=== PATIENT | male | born 1990 | race Caucasian/White ===

== ENCOUNTER 2021-02-23 09:50 | Emergency (ER) | payer BC ==
[2021-02-23] MEDS ORDERED: Sodium Chloride 0.9% 10 ML Syringe FLUSH PRN (10:24)
--- NOTE | 2021-02-23 10:58 | EDM.PDOC ---
ED HPI GENERAL MEDICAL PROBLEM - General Chief Complaint: Chest Pain Stated Complaint: SHARP CHEST PAIN EPISODES Time Seen by Provider: 02/23/21 10:33 Source of Information: Reports: Patient, RN Notes Reviewed - History of Present Illness INITIAL COMMENTS - FREE TEXT/NARRATIVE: 30 yr old male with several episodes of chest discomfort over the past few days. 3 days ago was the worst, felt palpitations, felt like heart "was racing". chest felt tight, no radiation of discomfort. 2 less severe episodes of discomfort since that time. Has not been recently ill. No discomfort at time of exam. Family hx is not bad for serious heart problems. Social & Family History - Tobacco Use Tobacco Use Status *Q: Never Tobacco User ED ROS GENERAL - Review of Systems Review Of Systems: See Below Constitutional: Denies: Fever, Chills, Diaphoresis HEENT: Reports: No Symptoms Respiratory: Denies: Shortness of Breath, Cough Cardiovascular: Reports: Chest Pain, Lightheadedness, Palpitations GI/Abdominal: Denies: Abdominal Pain, Nausea, Vomiting Musculoskeletal: Denies: Neck Pain, Shoulder Pain, Arm Pain, Back Pain Neurological: Denies: Numbness, Tingling, Weakness ED EXAM, GENERAL - Physical Exam Exam: See Below General Appearance: Alert, No Apparent Distress Eye Exam: Bilateral Eye: PERRL Head: Atraumatic Neck: Supple Respiratory/Chest: No Respiratory Distress, Lungs Clear, Normal Breath Sounds, Chest Non-Tender GI/Abdominal: Soft, Non-Tender Extremities: Normal Inspection. No: Pedal Edema Neurological: Alert, Oriented, No Motor/Sensory Deficits Skin Exam: Warm, Dry, Normal Color #1 Interpretation EKG Date: 02/23/21 Rhythm: NSR [place]: Normal P-Wave: Present QRS: Normal ST-T: Normal QT: Normal Course - Vital Signs Last Recorded V/S: Last Vital Signs Temp 97.8 F 02/23/21 10:27 Pulse 76 02/23/21 10:27 Resp 18 02/23/21 10:27 BP 110/78 02/23/21 10:27 Pulse Ox 98 02/23/21 10:27 - Orders/Labs/Meds Meds: Medications Discontinued Medications Generic Name Dose Route Start Last Admin Trade Name Freq PRN Reason Stop Dose Admin Sodium Chloride 10 ml 02/23/21 10:24 Sodium Chloride 0.9% 10 Ml Syringe FLUSH ASDIRECTED PRN Keep Vein Open - Re-Assessments/Exams Free Text/Narrative Re-Assessment/Exam: 02/27/21 15:01 sent pt home with 48 hr holter moniter Departure - Departure Time of Disposition: 10:53 Disposition: Home, Self-Care 01 Condition: Fair Clinical Impression: Atypical chest pain, Palpitations Instructions: Nonspecific Chest Pain, Adult, [id number], Palpitations, [id number] Referrals: PCP,None [Primary Care Provider] - Forms: ED Department Discharge Additional Instructions: 48 hour holter moniter. Drink plenty of fluids to maintain hydration. Follow up with one of our medical providers at our [facility] medical clinic in 7 to 10 days, call [phone] for appointment, return to our ED as needed if symptoms worsening in any way.
== END 2021-02-23 11:14 | disposition home or self-care (01) ==
LOC: JD.ED 09:50 → EDBD 09:50 → JD.ED 11:14
DX: R07.89 Other chest pain (principal); R00.2 Palpitations
CPT/HCPCS: 93005; 93225; 93226; 99284-25